=== PATIENT | female | born 1945 | race Caucasian/White ===

== ENCOUNTER 2018-09-06 14:26 | Emergency (ER) | payer MEDICARE, OTHER ==
[~2018-09-06 14:26] MED LIST: ACET-66 PO; AEC81 PO; CHLO1CAP28 PO; DOCU50CA13 PO; LINA145C PO; LORA10CA PO; LOSA50TA25 PO; METO-408 PO; OMEP20TA2 PO; PRAV20TA4 PO; PREMC VG; SENN15TA38 PO
== END 2018-09-06 15:42 | disposition home or self-care (01) ==
LOC: EDH 14:26
DX: S92.502A Displaced unspecified fracture of left lesser toe(s), initial encounter for closed fracture (principal); I10 Essential (primary) hypertension; I25.10 Atherosclerotic heart disease of native coronary artery without angina pectoris; X58.XXXA Exposure to other specified factors, initial encounter; Y93.89 Activity, other specified; Y92.098 Other place in other non-institutional residence as the place of occurrence of the external cause; Y99.8 Other external cause status
CPT/HCPCS: 73660

== ENCOUNTER 2018-09-18 17:28 | Emergency (ER) | payer MEDICARE, OTHER | END 2018-09-18 18:54 | disposition home or self-care (01) | LOC: EDH 17:28 | DX: S90.32XA Contusion of left foot, initial encounter (principal); S90.02XA Contusion of left ankle, initial encounter; I25.10 Atherosclerotic heart disease of native coronary artery without angina pectoris; I10 Essential (primary) hypertension; Z87.891 Personal history of nicotine dependence; Z90.710 Acquired absence of both cervix and uterus; Z98.890 Other specified postprocedural states; Z91.040 Latex allergy status; W22.8XXA Striking against or struck by other objects, initial encounter; Y93.89 Activity, other specified; Y92.512 Supermarket, store or market as the place of occurrence of the external cause; Y99.8 Other external cause status | CPT/HCPCS: 73610; 73630 ==

== ENCOUNTER → 2019-09-22 | Outpatient (CLI) | payer MEDICARE, OTHER ==
[~2019-09-22] MED LIST changes: -LOSA50TA25 PO; +LOSA50TA64 PO; -SENN15TA38 PO; +SENN15TA4 PO
== END | disposition home or self-care (01) ==
LOC: RAH 15:55
PROVIDERS: ATTEND Internal Medicine Critical Care Medicine
DX: M19.012 Primary osteoarthritis, left shoulder (principal)
CPT/HCPCS: 73030; 73060